=== PATIENT | male | born 1980 | race Caucasian/White ===

== ENCOUNTER 2019-02-17 22:20 | Inpatient (IN) | payer MEDICAID, OTHER ==
[2019-02-18] MEDS: IBUPROFEN 600 MG TAB PO (00:19)
[2019-02-18] MEDS: HYDROCODONE/APAP (10/325) TAB PO (03:54)
[2019-02-18 05:23] LABS: ADD MAN DIFF? NO
[2019-02-18 05:25] LABS: WHITE BLOOD COUNT 12.9 10^3/ul (4.8-10.8)
[2019-02-18 05:25] LABS: BASOPHILS % 0.3 % (0.0-2.0); EOSINOPHILS % 0.3 % (0.0-7.0); HEMATOCRIT 39.1 % (42.0-52.0); HEMOGLOBIN 13.3 g/dl (14.0-18.0); LYMPHOCYTES # 2.3 10^3/ul (0.8-2.9); LYMPHOCYTES % 17.5 % (15.0-51.0); MEAN CORPUSCULAR HEMOGLOBIN 29.7 pg (29.0-33.0); MEAN CORPUSCULAR VOLUME 87.3 fl (82.0-101.0); MEAN PLATELET VOLUME 10.6 fl (7.4-10.4); MONOCYTE # 0.8 10^3/ul (0.3-0.9); MONOCYTES % 6.2 % (0.0-11.0); NEUTROPHIL # 9.7 10^3/ul (1.6-7.5); NEUTROPHILS % 75.3 % (39.0-77.0); PLATELET COUNT 229 10^3/UL (140-415); RED BLOOD COUNT 4.48 10^6/ul (4.70-6.10); RED CELL DISTRIBUTION WIDTH 14.5 % (11.5-14.5)
[2019-02-18 05:45] LABS: INR 0.92; PROTIME 12.5 Sec (11.9-14.9)
[2019-02-18 05:46] LABS: PARTIAL THROMBOPLASTIN TIME 26.7 Sec (23.0-35.0)
[2019-02-18 05:47] LABS: ALANINE AMINOTRANSFERASE 55 IU/L (13-69); ALBUMIN 4.6 g/dl (3.3-4.9); ALBUMIN/GLOBULIN RATIO 1.31; ALKALINE PHOSPHATASE 129 IU/L (42-121); ANION GAP 13 (5-13); ASPARTATE AMINO TRANSFERASE 48 IU/L (15-46); BILIRUBIN,INDIRECT 0.6 mg/dl (0-1.1); BILIRUBIN,TOTAL 0.6 mg/dl (0.2-1.3); BLOOD UREA NITROGEN 14 mg/dl (7-20); CALCIUM 9.3 mg/dl (8.4-10.2); CARBON DIOXIDE 21 mmol/L (21-31); CHLORIDE 108 mmol/L (97-110); Estimated GFR > 60 mL/min (>60); GLUCOSE 116 mg/dl (70-220); POTASSIUM 3.9 mmol/L (3.5-5.1); SODIUM 142 mmol/L (135-144); TOTAL PROTEIN 8.1 g/dl (6.1-8.1)
[2019-02-18] MEDS ORDERED: NACL 0.9% 3 ML SYG IV (07:30)
[2019-02-18] MEDS ORDERED: HYDROCODONE/APAP (5/325) TAB PO (07:30)
[2019-02-18] MEDS ORDERED: ONDANSETRON 4 MG INJ IV (07:30)
[2019-02-18] MEDS: morphine 2 MG INJ IV ×3 (08:04→16:25)
[2019-02-18] MEDS: HYDROCODONE/APAP (5/325) TAB PO ×2 (14:14→20:01)
[2019-02-18] MEDS: KETOROLAC 30 MG INJ IV (18:57)
[2019-02-19 05:05] LABS: ADD MAN DIFF? NO
[2019-02-19 05:14] LABS: BASOPHILS % 0.4 % (0.0-2.0); EOSINOPHILS # 0.2 10^3/ul (0.0-0.5); EOSINOPHILS % 2.8 % (0.0-7.0); HEMATOCRIT 37.7 % (42.0-52.0); HEMOGLOBIN 12.4 g/dl (14.0-18.0); LYMPHOCYTES # 2.5 10^3/ul (0.8-2.9); MEAN CORPUSCULAR HEMOGLOBIN 29.7 pg (29.0-33.0); MEAN CORPUSCULAR HGB CONC 32.9 g/dl (32.0-37.0); MEAN CORPUSCULAR VOLUME 90.4 fl (82.0-101.0); MEAN PLATELET VOLUME 10.7 fl (7.4-10.4); MONOCYTE # 0.7 10^3/ul (0.3-0.9); MONOCYTES % 7.9 % (0.0-11.0); NEUTROPHIL # 4.8 10^3/ul (1.6-7.5); NEUTROPHILS % 58.3 % (39.0-77.0); PLATELET COUNT 217 10^3/UL (140-415); RED BLOOD COUNT 4.17 10^6/ul (4.70-6.10); RED CELL DISTRIBUTION WIDTH 14.8 % (11.5-14.5)
[2019-02-19 05:14] LABS: WHITE BLOOD COUNT 8.2 10^3/ul (4.8-10.8)
[2019-02-19 05:28] LABS: ALANINE AMINOTRANSFERASE 47 IU/L (13-69); ALBUMIN 4.3 g/dl (3.3-4.9); ALBUMIN/GLOBULIN RATIO 1.38; ALKALINE PHOSPHATASE 123 IU/L (42-121); ANION GAP 9 (5-13); ASPARTATE AMINO TRANSFERASE 34 IU/L (15-46); BILIRUBIN,INDIRECT 0.8 mg/dl (0-1.1); BILIRUBIN,TOTAL 0.8 mg/dl (0.2-1.3); BLOOD UREA NITROGEN 10 mg/dl (7-20); CALCIUM 9.4 mg/dl (8.4-10.2); CARBON DIOXIDE 28 mmol/L (21-31); CHLORIDE 103 mmol/L (97-110); CREATININE 0.75 mg/dl (0.61-1.24); Estimated GFR > 60 mL/min (>60); GLUCOSE 112 mg/dl (70-220); MAGNESIUM 2.3 mg/dl (1.7-2.5); PHOSPHORUS 4.8 mg/dl (2.5-4.9); POTASSIUM 4.7 mmol/L (3.5-5.1); SODIUM 140 mmol/L (135-144); TOTAL PROTEIN 7.4 g/dl (6.1-8.1)
[2019-02-19] MEDS: HYDROCODONE/APAP (5/325) TAB PO (05:51)
[2019-02-19] MEDS: morphine 2 MG INJ IV ×2 (08:05→12:48)
[2019-02-19 08:07] LABS: HEMOGLOBIN A1C 5.5 % (0-5.9)
[2019-02-19] MEDS: HYDROCODONE/APAP (10/325) TAB PO ×2 (15:15→21:14)
[2019-02-20] MEDS: KETOROLAC 30 MG INJ IV (02:03)
[2019-02-20 05:58] LABS: TROPONIN-I < 0.012 ng/ml (0.000-0.120)
[2019-02-20] MEDS: HYDROCODONE/APAP (10/325) TAB PO ×3 (07:45→19:26)
[2019-02-20] MEDS: morphine 2 MG INJ IV (21:02)
[2019-02-20] MEDS: ENOXAPARIN 40 MG/0.4 ML SYG SC (21:09)
[2019-02-20] MEDS: MAGNESIUM HYDROXIDE 30ML CUP PO (22:30)
[2019-02-20] MEDS ORDERED: MAGNESIUM HYDROXIDE 30ML CUP PO (22:30)
[2019-02-21] MEDS: HYDROCODONE/APAP (10/325) TAB PO ×4 (01:14→18:57)
[2019-02-21] MEDS: SENNA TAB PO ×2 (08:27→21:11)
[2019-02-21] MEDS: ENOXAPARIN 40 MG/0.4 ML SYG SC (08:32)
[2019-02-21] MEDS: morphine 4 MG/ML VIAL IV (21:15)
[2019-02-22] MEDS: morphine 4 MG/ML VIAL IV ×4 (01:57→18:29)
[2019-02-22] MEDS: SENNA TAB PO ×3 (09:00→19:54)
[2019-02-22] MEDS: HYDROCODONE/APAP (10/325) TAB PO ×2 (17:17→22:15)
[2019-02-23] MEDS: morphine 4 MG/ML VIAL IV ×3 (02:12→12:26)
[2019-02-23 05:45] LABS: ADD MAN DIFF? NO; BASOPHILS % 0.5 % (0.0-2.0); EOSINOPHILS # 0.5 10^3/ul (0.0-0.5); HEMATOCRIT 38.9 % (42.0-52.0); HEMOGLOBIN 12.5 g/dl (14.0-18.0); LYMPHOCYTES # 2.6 10^3/ul (0.8-2.9); LYMPHOCYTES % 29.2 % (15.0-51.0); MEAN CORPUSCULAR HEMOGLOBIN 29.1 pg (29.0-33.0); MEAN CORPUSCULAR HGB CONC 32.1 g/dl (32.0-37.0); MEAN CORPUSCULAR VOLUME 90.7 fl (82.0-101.0); MEAN PLATELET VOLUME 10.3 fl (7.4-10.4); MONOCYTE # 0.6 10^3/ul (0.3-0.9); MONOCYTES % 6.4 % (0.0-11.0); NEUTROPHIL # 5.1 10^3/ul (1.6-7.5); NEUTROPHILS % 57.6 % (39.0-77.0); PLATELET COUNT 352 10^3/UL (140-415); RED BLOOD COUNT 4.29 10^6/ul (4.70-6.10); RED CELL DISTRIBUTION WIDTH 13.9 % (11.5-14.5)
[2019-02-23 05:45] LABS: WHITE BLOOD COUNT 8.8 10^3/ul (4.8-10.8)
[2019-02-23] MEDS: HYDROCODONE/APAP (10/325) TAB PO (06:03)
[2019-02-23 06:14] LABS: PHOSPHORUS 5.4 mg/dl (2.5-4.9)
[2019-02-23 06:14] LABS: MAGNESIUM 2.2 mg/dl (1.7-2.5)
[2019-02-23 06:16] LABS: ANION GAP 12 (5-13); BLOOD UREA NITROGEN 18 mg/dl (7-20); CALCIUM 10.2 mg/dl (8.4-10.2); CARBON DIOXIDE 29 mmol/L (21-31); CHLORIDE 99 mmol/L (97-110); CREATININE 0.78 mg/dl (0.61-1.24); Estimated GFR > 60 mL/min (>60); GLUCOSE 110 mg/dl (70-220); POTASSIUM 4.5 mmol/L (3.5-5.1); SODIUM 140 mmol/L (135-144)
[2019-02-23] MEDS: SENNA TAB PO ×2 (09:00→20:42)
[2019-02-23] MEDS ORDERED: SEVOFLURANE 15 MIN (19:00)
[2019-02-23] MEDS ORDERED: PROPOFOL 20 ML (19:02)
[2019-02-23] MEDS ORDERED: ROPIVACAINE 0.5 % 30 ML VIAL (19:02)
[2019-02-23] MEDS ORDERED: LIDOCAINE 2% (SDV) 5 ML INJ (19:02)
[2019-02-23] MEDS ORDERED: ROCURONIUM 50 MG INJ (19:02)
[2019-02-23] MEDS ORDERED: SUCCINYLCHOLINE CHLORIDE 100 MG/5 ML SYG IV (19:02)
[2019-02-23] MEDS: POLYMYXIN/BACITRACIN 1L IRRIG IRR (19:02)
[2019-02-23] MEDS ORDERED: MIDAZOLAM 1 MG/ML 2 ML INJ (19:02)
[2019-02-23] MEDS ORDERED: CEFAZOLIN 1 GM INJ (19:27)
[2019-02-23] MEDS ORDERED: ONDANSETRON 4 MG INJ (19:38)
[2019-02-23] MEDS ORDERED: DEXAMETHASONE 4 MG/ML 5 ML INJ (19:38)
[2019-02-23] MEDS ORDERED: FAMOTIDINE 20 MG INJ (19:39)
[2019-02-23] MEDS ORDERED: EPHEDrine 25 MG/5 ML SYG (19:51)
[2019-02-23] MEDS ORDERED: HYDROmorphONE 2 MG/ML SYG (21:26)
[2019-02-23] MEDS ORDERED: PROCHLORPERAZINE 10 MG INJ IV (21:30)
[2019-02-23] MEDS ORDERED: DIPHENHYDRAMINE 50 MG INJ IV (21:30)
[2019-02-23] MEDS ORDERED: FENTAnyl 50 MCG/ML VIAL IV ×3 (21:30)
[2019-02-23] MEDS ORDERED: HYDROmorphONE 1 MG/5 ML IV SYRINGE IV ×3 (21:30)
[2019-02-23] MEDS ORDERED: ONDANSETRON 4 MG INJ IV (21:30)
[2019-02-23] MEDS ORDERED: MEPERIDINE 25 MG INJ IV (21:30)
[2019-02-23] MEDS ORDERED: oxyCODONE 5 MG TAB PO (22:00)
[2019-02-23] MEDS: LABETALOL HCL 20MG INJ IV ×3 (22:30→22:42)
[2019-02-23] MEDS: CEFAZOLIN 2 GM/50 ML (PMX) 50 ML IVPB (22:31)
[2019-02-23] MEDS: SOD CHLORIDE 0.9% 1,000 ML IV (22:37)
[2019-02-23 23:26] LABS: ADD UMIC NO; UR ASCORBIC ACID NEGATIVE (NEGATIVE); UR BILIRUBIN (Dip) NEGATIVE (NEGATIVE); UR BLOOD (Dip) NEGATIVE (NEGATIVE); UR CLARITY CLEAR (CLEAR); UR COLOR YELLOW (YELLOW); UR GLUCOSE (Dip) NEGATIVE (NEGATIVE); UR KETONES (Dip) NEGATIVE (NEGATIVE); UR LEUKOCYTE ESTERASE (Dip) NEGATIVE Leu/ul (NEGATIVE); UR NITRITE (Dip) NEGATIVE (NEGATIVE); UR SPECIFIC GRAVITY (Dip) 1.011 (1.003-1.030); UR TOTAL PROTEIN (Dip) NEGATIVE (NEGATIVE); UR UROBILINOGEN (Dip) NEGATIVE (NEGATIVE)
[2019-02-23] MEDS: HYDROmorphONE 1 MG/ML SYG IV (23:40)
[2019-02-24] MEDS: HYDROCODONE/APAP (10/325) TAB PO ×5 (02:03→23:01)
[2019-02-24] MEDS: HYDROmorphONE 1 MG/ML SYG IV ×5 (02:31→20:25)
[2019-02-24] MEDS: CEFAZOLIN 2 GM/50 ML (PMX) 50 ML IVPB ×2 (05:25→14:58)
[2019-02-24 05:32] LABS: ADD MAN DIFF? NO
[2019-02-24 05:37] LABS: BASOPHILS % 0.1 % (0.0-2.0); EOSINOPHILS % 0.1 % (0.0-7.0); HEMATOCRIT 34.3 % (42.0-52.0); HEMOGLOBIN 11.2 g/dl (14.0-18.0); LYMPHOCYTES # 0.9 10^3/ul (0.8-2.9); LYMPHOCYTES % 9.7 % (15.0-51.0); MEAN CORPUSCULAR HEMOGLOBIN 29.1 pg (29.0-33.0); MEAN CORPUSCULAR HGB CONC 32.7 g/dl (32.0-37.0); MEAN CORPUSCULAR VOLUME 89.1 fl (82.0-101.0); MEAN PLATELET VOLUME 10.4 fl (7.4-10.4); MONOCYTE # 0.3 10^3/ul (0.3-0.9); MONOCYTES % 3.8 % (0.0-11.0); NEUTROPHIL # 7.6 10^3/ul (1.6-7.5); NEUTROPHILS % 85.9 % (39.0-77.0); PLATELET COUNT 344 10^3/UL (140-415); RED BLOOD COUNT 3.85 10^6/ul (4.70-6.10); RED CELL DISTRIBUTION WIDTH 13.8 % (11.5-14.5)
[2019-02-24 05:37] LABS: WHITE BLOOD COUNT 8.9 10^3/ul (4.8-10.8)
[2019-02-24 05:56] LABS: PHOSPHORUS 4.7 mg/dl (2.5-4.9)
[2019-02-24 05:59] LABS: ANION GAP 11 (5-13); BLOOD UREA NITROGEN 12 mg/dl (7-20); CALCIUM 9.2 mg/dl (8.4-10.2); CARBON DIOXIDE 27 mmol/L (21-31); CHLORIDE 103 mmol/L (97-110); CREATININE 0.64 mg/dl (0.61-1.24); Estimated GFR > 60 mL/min (>60); GLUCOSE 154 mg/dl (70-220); POTASSIUM 4.3 mmol/L (3.5-5.1); SODIUM 141 mmol/L (135-144)
[2019-02-24] MEDS: SENNA TAB PO ×2 (08:26→20:25)
[2019-02-24] MEDS: ENOXAPARIN 40 MG/0.4 ML SYG SC (08:30)
[2019-02-24] MEDS ORDERED: ENOXAPARIN 40 MG/0.4 ML SYG SC (09:00)
[2019-02-24] MEDS: SOD CHLORIDE 0.9% 1,000 ML IV ×2 (10:06→20:30)
[2019-02-24] MEDS: POLYETHYLENE GLYCOL 17 GM PACKET PO (20:25)
[2019-02-25] MEDS: HYDROCODONE/APAP (10/325) TAB PO ×4 (03:34→19:14)
[2019-02-25 05:15] LABS: ADD MAN DIFF? NO
[2019-02-25 05:20] LABS: BASOPHILS % 0.3 % (0.0-2.0); EOSINOPHILS # 0.3 10^3/ul (0.0-0.5); EOSINOPHILS % 2.9 % (0.0-7.0); HEMATOCRIT 34.8 % (42.0-52.0); HEMOGLOBIN 11.3 g/dl (14.0-18.0); LYMPHOCYTES # 1.9 10^3/ul (0.8-2.9); MEAN CORPUSCULAR HEMOGLOBIN 29.5 pg (29.0-33.0); MEAN CORPUSCULAR HGB CONC 32.5 g/dl (32.0-37.0); MEAN CORPUSCULAR VOLUME 90.9 fl (82.0-101.0); MEAN PLATELET VOLUME 10.4 fl (7.4-10.4); MONOCYTE # 0.9 10^3/ul (0.3-0.9); MONOCYTES % 9.6 % (0.0-11.0); NEUTROPHIL # 5.9 10^3/ul (1.6-7.5); NEUTROPHILS % 65.9 % (39.0-77.0); PLATELET COUNT 350 10^3/UL (140-415); RED BLOOD COUNT 3.83 10^6/ul (4.70-6.10); RED CELL DISTRIBUTION WIDTH 13.8 % (11.5-14.5)
[2019-02-25 05:39] LABS: ANION GAP 10 (5-13); BLOOD UREA NITROGEN 12 mg/dl (7-20); CALCIUM 9.3 mg/dl (8.4-10.2); CARBON DIOXIDE 27 mmol/L (21-31); CHLORIDE 106 mmol/L (97-110); CREATININE 0.61 mg/dl (0.61-1.24); Estimated GFR > 60 mL/min (>60); GLUCOSE 127 mg/dl (70-220); POTASSIUM 3.9 mmol/L (3.5-5.1); SODIUM 143 mmol/L (135-144)
[2019-02-25 05:43] LABS: PHOSPHORUS 3.7 mg/dl (2.5-4.9)
[2019-02-25 05:43] LABS: MAGNESIUM 2.2 mg/dl (1.7-2.5)
[2019-02-25] MEDS: POLYETHYLENE GLYCOL 17 GM PACKET PO ×2 (09:15→20:39)
[2019-02-25] MEDS: SENNA TAB PO ×2 (09:16→20:40)
[2019-02-25] MEDS: ENOXAPARIN 40 MG/0.4 ML SYG SC (09:16)
[2019-02-25] MEDS: HYDROmorphONE 1 MG/ML SYG IV (12:22)
[2019-02-26] MEDS: HYDROmorphONE 1 MG/ML SYG IV ×2 (01:02→09:08)
[2019-02-26] MEDS: NACL 0.9% 3 ML SYG IV (01:04)
[2019-02-26 04:58] LABS: ADD MAN DIFF? NO
[2019-02-26 04:59] LABS: BASOPHILS % 0.3 % (0.0-2.0); EOSINOPHILS # 0.3 10^3/ul (0.0-0.5); EOSINOPHILS % 3.8 % (0.0-7.0); HEMATOCRIT 35.4 % (42.0-52.0); HEMOGLOBIN 11.7 g/dl (14.0-18.0); LYMPHOCYTES # 3.2 10^3/ul (0.8-2.9); LYMPHOCYTES % 36.2 % (15.0-51.0); MEAN CORPUSCULAR HEMOGLOBIN 29.7 pg (29.0-33.0); MEAN CORPUSCULAR HGB CONC 33.1 g/dl (32.0-37.0); MEAN CORPUSCULAR VOLUME 89.8 fl (82.0-101.0); MEAN PLATELET VOLUME 10.1 fl (7.4-10.4); MONOCYTE # 0.7 10^3/ul (0.3-0.9); MONOCYTES % 8.1 % (0.0-11.0); NEUTROPHIL # 4.5 10^3/ul (1.6-7.5); NEUTROPHILS % 51.1 % (39.0-77.0); PLATELET COUNT 378 10^3/UL (140-415); RED BLOOD COUNT 3.94 10^6/ul (4.70-6.10); RED CELL DISTRIBUTION WIDTH 13.8 % (11.5-14.5)
[2019-02-26 04:59] LABS: WHITE BLOOD COUNT 8.9 10^3/ul (4.8-10.8)
[2019-02-26 05:16] LABS: PHOSPHORUS 4.7 mg/dl (2.5-4.9)
[2019-02-26 05:16] LABS: MAGNESIUM 2.2 mg/dl (1.7-2.5)
[2019-02-26 05:21] LABS: ANION GAP 10 (5-13); BLOOD UREA NITROGEN 14 mg/dl (7-20); CALCIUM 9.8 mg/dl (8.4-10.2); CARBON DIOXIDE 29 mmol/L (21-31); CHLORIDE 103 mmol/L (97-110); Estimated GFR > 60 mL/min (>60); GLUCOSE 120 mg/dl (70-220); POTASSIUM 4.3 mmol/L (3.5-5.1); SODIUM 142 mmol/L (135-144)
[2019-02-26] MEDS: HYDROCODONE/APAP (10/325) TAB PO ×2 (05:56→15:38)
[2019-02-26] MEDS: POLYETHYLENE GLYCOL 17 GM PACKET PO ×2 (09:08→21:00)
[2019-02-26] MEDS: SENNA TAB PO ×2 (09:08→21:00)
[2019-02-26] MEDS: ENOXAPARIN 40 MG/0.4 ML SYG SC (09:11)
[2019-02-27] MEDS: HYDROmorphONE 1 MG/ML SYG IV (00:47)
[2019-02-27] MEDS: SENNA TAB PO ×2 (09:00→20:25)
[2019-02-27] MEDS: POLYETHYLENE GLYCOL 17 GM PACKET PO ×2 (09:53→20:25)
[2019-02-27] MEDS: HYDROCODONE/APAP (10/325) TAB PO ×3 (09:53→22:08)
[2019-02-27] MEDS: ENOXAPARIN 40 MG/0.4 ML SYG SC (09:58)
[2019-02-28] MEDS: POLYETHYLENE GLYCOL 17 GM PACKET PO ×2 (09:02→20:48)
[2019-02-28] MEDS: SENNA TAB PO ×2 (09:02→20:49)
[2019-02-28] MEDS: ENOXAPARIN 40 MG/0.4 ML SYG SC (09:06)
[2019-02-28] MEDS: HYDROCODONE/APAP (10/325) TAB PO ×3 (09:07→20:50)
[2019-03-01] MEDS: ACETAMINOPHEN 325 MG TAB PO (06:52)
[2019-03-01] MEDS: POLYETHYLENE GLYCOL 17 GM PACKET PO (09:00)
[2019-03-01] MEDS: SENNA TAB PO (09:01)
[2019-03-01] MEDS: ENOXAPARIN 40 MG/0.4 ML SYG SC (09:02)
[2019-03-01] MEDS: HYDROCODONE/APAP (10/325) TAB PO (12:09)
== END 2019-03-01 20:15 | disposition home or self-care (01) | DRG 494 ==
LOC: MS1 02-20 05:38 → FTE 22:20 → MS1 02-18 05:15
PROC: 0QSH04Z Reposition Left Tibia with Internal Fixation Device, Open Approach (ICD-10-PCS; principal; 2019-02-23 18:30)
DX: S82.142A Displaced bicondylar fracture of left tibia, initial encounter for closed fracture (principal); S82.492A Other fracture of shaft of left fibula, initial encounter for closed fracture; X58.XXXA Exposure to other specified factors, initial encounter; Y93.66 Activity, soccer; Y92.322 Soccer field as the place of occurrence of the external cause; Y99.8 Other external cause status; D64.9 Anemia, unspecified
CPT/HCPCS: 36415; 73560; 73562; 73700; 80048; 80053; 81003; 83036; 83735; 84100; 84443; 84484; 85025; 85610; 85730; 93005; 93306; 97116; 97161; 97530; 99285-25